=== PATIENT | female | born 1945 | race Caucasian/White ===

== ENCOUNTER 2017-11-13 18:26 | Inpatient (IN) ==
[2017-11-13] MEDS ORDERED: PANTOPRAZOLE 40 MG VIAL IV STA (20:46)
[2017-11-13] MEDS ORDERED: MEPERIDINE 25 MG/1 ML VIAL IV STA ×2 (20:46→22:35)
[2017-11-13] MEDS ORDERED: SODIUM CHLORIDE 0.9% 1,000 ML IV STA (20:46)
[2017-11-13] MEDS ORDERED: ONDANSETRON 4 MG/2 ML VIAL IV STA (20:46)
[2017-11-13 20:57] LABS: Basophils % 0.2 % (0.0-0.8); Eosinophils % 0.1 % (0.00-10.9); Hemoglobin 12.8 GM/DL (12.0-16.0); Immature Granulocytes % 0.5 %; Immature Granulocytes Absolute 0.05 #; Lymphocytes # 0.5 10*3/uL (1.4-4.0); Lymphocytes % 4.5 % (21.3-54.2); Mean Corpuscular Hemoglobin 28 PG (27-34); Mean Corpuscular Volume 87.3 FL (87-102); Mean Platelet Volume 10.2 FL (9.6-12.0); Monocytes # 0.6 10*3/uL (0.11-0.8); Neutrophils # 9.5 10*3/uL (1.4-7.4); Neutrophils % 88.7 % (38.7-73.9); Platelet Count 269 T/CUMM (130-400); Red Blood Count 4.58 MC/CUMM (3.8-5.5); White Blood Count 10.7 T/CUMM (4-12)
[2017-11-13 21:19] LABS: Lactic Acid 2.1 MMOL/L (0.4-2.0)
[2017-11-13 21:25] LABS: Alanine Aminotransferase 427 U/L (13-56); Albumin 4.1 G/DL (3.4-5.0); Alkaline Phosphatase 310 U/L (45-117); Amylase 40 U/L (25-115); Aspartate Amino Transferase 1085 U/L (0-37); Blood Urea Nitrogen 13 MG/DL (7-18); Glucose 173 MG/DL (74-106); Osmolality,Calculated 273.1 MOS/KG (273-304); Potassium 3.4 MMOL/L (3.5-5.1); Sodium 135 MMOL/L (136-145); Total Protein 8.5 G/DL (6.4-8.3); Troponin I Only < 0.015 NG/ML (0.00-0.045)
[2017-11-13 21:30] LABS: Band Neutrophils 3 % (0-10); Lymphocytes 4 % (20-55); Segmented Neutrophils 87 % (50-85); Total Cells Counted 100
[2017-11-13 21:31] LABS: Platelet Estimate Adequate
[2017-11-13] MEDS ORDERED: MAGNESIUM SULF RIDER 2 GM in PREMIX 1 EACH IV STA (22:22)
[2017-11-14] MEDS ORDERED: GLUCAGON 1 MG VIAL IM PRN (00:57)
[2017-11-14] MEDS ORDERED: hydrALAZINE 20 MG/1 ML VIAL IV PRN (00:57)
[2017-11-14] MEDS ORDERED: PROMETHAZINE 25 MG/1 ML VIAL IM PRN (00:57)
[2017-11-14] MEDS ORDERED: DEXTROSE 50% 25 GM/50 ML VIAL IV PRN (00:57)
[2017-11-14] MEDS: SODIUM CHLORIDE 0.9% 1,000 ML IV SCH ×3 (01:28→21:22)
[2017-11-14] MEDS: MEPERIDINE 50 MG/1 ML VIAL IV PRN ×4 (01:35→22:21)
[2017-11-14] MEDS: ONDANSETRON 4 MG/2 ML VIAL IV PRN ×2 (01:40→05:39)
[2017-11-14 01:48] LABS: Lactic Acid 4.1 MMOL/L (0.4-2.0)
[2017-11-14 05:10] LABS: Basophils % 0.2 % (0.0-0.8); Hematocrit 39.4 VOL% (35.7-47.0); Immature Granulocytes % 0.6 %; Immature Granulocytes Absolute 0.09 #; Lymphocytes # 0.2 10*3/uL (1.4-4.0); Lymphocytes % 1.3 % (21.3-54.2); Mean Corpuscular Hemoglobin 28 PG (27-34); Mean Corpuscular Volume 84.7 FL (87-102); Mean Platelet Volume 10.8 FL (9.6-12.0); Monocytes # 0.3 10*3/uL (0.11-0.8); Monocytes % 1.8 % (1.7-12.7); Neutrophils # 13.5 10*3/uL (1.4-7.4); Neutrophils % 96.1 % (38.7-73.9); Platelet Count 254 T/CUMM (130-400); Red Blood Count 4.65 MC/CUMM (3.8-5.5); Red Cell Distribution Width 15.1 % (9.3-17.3); White Blood Count 14.1 T/CUMM (4-12)
[2017-11-14 05:16] LABS: PT Patient Result 10.2 SECS; Partial Thromboplastin Time 25.1 SECS (0-40)
[2017-11-14 05:34] LABS: Band Neutrophils 11 % (0-10); Lymphocytes 1 % (20-55); Segmented Neutrophils 86 % (50-85); Total Cells Counted 100
[2017-11-14 05:35] LABS: Hypochromasia 1+
[2017-11-14 05:36] LABS: Microcytosis Slight
[2017-11-14 05:49] LABS: Albumin 3.6 G/DL (3.4-5.0); Bilirubin,Total 3.1 MG/DL (0.2-1.0); Osmolality,Calculated 272.2 MOS/KG (273-304); Potassium 2.9 MMOL/L (3.5-5.1); Risk Ratio 3.24; Thyroid Stimulating Hormone 0.409 uIU/ml (0.358-3.74); Total Protein 8.1 G/DL (6.4-8.3); VLDL CHOLESTEROL 15.2 MG/DL
[2017-11-14] MEDS: INSULIN REGULAR 100 UNIT/ML SUBCUT SCH ×3 (06:45→18:31)
[2017-11-14 07:37] LABS: Apearance,Urine CLEAR (Clear); Bilirubin,Urine Small mg/dL (Negative); Blood, Urine Negative (Negative); Glucose,Urine (UA) Negative (Negative); Ketones,Urine Negative (Negative); Nitrite,Urine Negative (Negative); Protein,Urine 30 MG/DL; RBC,Urine 4 /HPF (0-4); Squamous Epithelial Cell,Urine Occasional /HPF (0-10); Urine Color Amber (Yellow); Urine Specific Gravity 1.026 (1.001-1.035); WBC,Urine 1 /HPF (0-6)
[2017-11-14] MEDS: PANTOPRAZOLE 40 MG VIAL IV SCH (09:32)
[2017-11-14] MEDS ORDERED: GENTAMICIN INJ 80 MG in PREMIX 1 EACH IV ONE (10:30)
[2017-11-14] MEDS: cefTRIAXone 1,000 MG in SYRINGE 1 EACH IV SCH (11:09)
[2017-11-14] MEDS: POTASSIUM CHLORIDE RIDER 10 MEQ in PREMIX 1 EACH IV SCH ×4 (12:56→17:21)
[2017-11-15] MEDS: INSULIN REGULAR 100 UNIT/ML SUBCUT SCH ×4 (00:40→18:09)
[2017-11-15] MEDS: SODIUM CHLORIDE 0.9% 1,000 ML IV SCH ×3 (04:57→22:12)
[2017-11-15 06:16] LABS: Basophils % 0.2 % (0.0-0.8); Eosinophils # 0.1 10*3/uL (0.0-0.87); Eosinophils % 1.4 % (0.00-10.9); Hematocrit 32.3 VOL% (35.7-47.0); Immature Granulocytes % 0.5 %; Immature Granulocytes Absolute 0.05 #; Lymphocytes # 0.8 10*3/uL (1.4-4.0); Lymphocytes % 8.3 % (21.3-54.2); Mean Corpuscular HGB Conc 32.5 GM/DL (32-36); Mean Corpuscular Hemoglobin 28 PG (27-34); Mean Corpuscular Volume 84.6 FL (87-102); Mean Platelet Volume 11.1 FL (9.6-12.0); Monocytes # 0.7 10*3/uL (0.11-0.8); Monocytes % 7.9 % (1.7-12.7); Neutrophils # 7.5 10*3/uL (1.4-7.4); Neutrophils % 81.7 % (38.7-73.9); Platelet Count 206 T/CUMM (130-400); Red Blood Count 3.82 MC/CUMM (3.8-5.5); Red Cell Distribution Width 15.9 % (9.3-17.3)
[2017-11-15 06:17] LABS: White Blood Count 9.2 T/CUMM (4-12)
[2017-11-15 06:18] LABS: Hemoglobin 10.5 GM/DL (12.0-16.0)
[2017-11-15] MEDS ORDERED: INDOMETHACIN SUPP 50 MG SUPP RECTAL ONE (06:30)
[2017-11-15 06:37] LABS: Albumin 2.8 G/DL (3.4-5.0); Bilirubin,Total 3.7 MG/DL (0.2-1.0); Calcium 8.2 MG/DL (8.5-10.1); INR 1.1; Osmolality,Calculated 273.8 MOS/KG (273-304); PT Patient Result 11.9 SECS; Potassium 3.5 MMOL/L (3.5-5.1); Total Protein 6.6 G/DL (6.4-8.3)
[2017-11-15] MEDS ORDERED: PROPOFOL 200 MG/20 ML VIAL IV ONE (09:00)
[2017-11-15] MEDS ORDERED: ONDANSETRON 4 MG/2 ML VIAL ONE (09:00)
[2017-11-15] MEDS ORDERED: ROCURONIUM 100 MG/10 ML VIAL IV ONE (09:00)
[2017-11-15] MEDS ORDERED: SUCCINYLCHOLINE 200 MG/10 ML VIAL ONE (09:00)
[2017-11-15] MEDS ORDERED: LIDOCAINE 1% 5 ML VIAL ONE (09:00)
[2017-11-15] MEDS: PANTOPRAZOLE 40 MG VIAL IV SCH (09:03)
[2017-11-15] MEDS: cefTRIAXone 1,000 MG in SYRINGE 1 EACH IV SCH (10:01)
[2017-11-15] MEDS ORDERED: fentaNYL 100 MCG/2 ML VIAL ONE (11:53)
[2017-11-15] MEDS ORDERED: SEVOFLURANE 1 UNIT/15 MINUTE INH ONE ×2 (12:30→13:56)
[2017-11-15] MEDS: LACTATED RINGERS 1,000 ML IV SCH ×2 (13:58→13:59)
[2017-11-15] MEDS ORDERED: AMITRIPTYLINE 25 MG TABLET PO SCH (21:00)
[2017-11-15] MEDS ORDERED: tiZANidine 4 MG TABLET PO PRN (21:42)
[2017-11-15] MEDS ORDERED: rOPINIRole 0.25 MG TABLET PO SCH (21:45)
[2017-11-16] MEDS: INSULIN REGULAR 100 UNIT/ML SUBCUT SCH ×3 (00:22→12:22)
[2017-11-16] MEDS: SODIUM CHLORIDE 0.9% 1,000 ML IV SCH ×2 (02:40→12:23)
[2017-11-16 06:24] LABS: Basophils % 0.4 % (0.0-0.8); Eosinophils # 0.2 10*3/uL (0.0-0.87); Eosinophils % 3.4 % (0.00-10.9); Hematocrit 29.4 VOL% (35.7-47.0); Hemoglobin 9.3 GM/DL (12.0-16.0); Immature Granulocytes % 0.4 %; Immature Granulocytes Absolute 0.02 #; Lymphocytes # 0.5 10*3/uL (1.4-4.0); Lymphocytes % 10.5 % (21.3-54.2); Mean Corpuscular HGB Conc 31.6 GM/DL (32-36); Mean Corpuscular Hemoglobin 28 PG (27-34); Mean Corpuscular Volume 87.8 FL (87-102); Mean Platelet Volume 10.7 FL (9.6-12.0); Monocytes # 0.4 10*3/uL (0.11-0.8); Monocytes % 8.6 % (1.7-12.7); Neutrophils # 3.6 10*3/uL (1.4-7.4); Neutrophils % 76.7 % (38.7-73.9); Platelet Count 176 T/CUMM (130-400); Red Blood Count 3.35 MC/CUMM (3.8-5.5); Red Cell Distribution Width 15.8 % (9.3-17.3); White Blood Count 4.7 T/CUMM (4-12)
[2017-11-16 06:42] LABS: Albumin 2.5 G/DL (3.4-5.0); Bilirubin,Direct 0.57 MG/DL (0.0-0.20); Bilirubin,Indirect 0.8 MG/DL (0.0-1.0); Bilirubin,Total 1.4 MG/DL (0.2-1.0); Calcium 8.5 MG/DL (8.5-10.1); Osmolality,Calculated 279.4 MOS/KG (273-304); Potassium 3.6 MMOL/L (3.5-5.1); Total Protein 6.2 G/DL (6.4-8.3)
[2017-11-16] MEDS ORDERED: LEVOTHYROXINE 75 MCG TABLET PO SCH (07:00)
[2017-11-16] MEDS: LACTATED RINGERS 1,000 ML IV SCH ×3 (07:08→12:22)
[2017-11-16] MEDS: PANTOPRAZOLE 40 MG VIAL IV SCH (09:31)
[2017-11-16] MEDS: cefTRIAXone 1,000 MG in SYRINGE 1 EACH IV SCH (09:54)
[2017-11-16 12:15] VITALS: BP 151/73
== END 2017-11-16 14:47 | disposition home or self-care (01) | DRG 446 ==
LOC: N.ED 18:26 → N.EDINP 23:58 → N.3E 11-14 00:53
PROVIDERS: ADMIT Internal Medicine; ATTEND Internal Medicine
PROC: ERCPWST (ICD-10-PCS; 2017-11-15 09:05)

== ENCOUNTER 2018-09-08 09:48 | Inpatient (IN) ==
[2018-09-08] MEDS ORDERED: DEXTROSE 50% 25 GM/50 ML VIAL IV PRN (12:51)
[2018-09-08] MEDS ORDERED: GLUCAGON 1 MG VIAL IM PRN (12:51)
[2018-09-08] MEDS ORDERED: hydrALAZINE 20 MG/1 ML VIAL IV PRN (12:54)
[2018-09-08] MEDS ORDERED: ALBUTEROL/IPRATROPIUM 3 ML NEB RESP TX PRN (12:56)
[2018-09-08] MEDS ORDERED: ENOXAPARIN 40 MG/0.4 ML SYRINGE SUBCUT SCH (13:00)
[2018-09-08] MEDS ORDERED: PANTOPRAZOLE 40 MG TABLET PO SCH (13:00)
[2018-09-08 13:13] LABS: Basophils % 0.4 % (0.0-0.8); Eosinophils # 0.1 10*3/uL (0.0-0.87); Eosinophils % 0.7 % (0.00-10.9); Hematocrit 30.9 VOL% (35.7-47.0); Hemoglobin 9.5 GM/DL (12.0-16.0); Immature Granulocytes % 0.4 %; Immature Granulocytes Absolute 0.03 #; Lymphocytes # 1.7 10*3/uL (1.4-4.0); Lymphocytes % 24.3 % (21.3-54.2); Mean Corpuscular HGB Conc 30.7 GM/DL (32-36); Mean Corpuscular Volume 86.6 FL (87-102); Mean Platelet Volume 10.1 FL (9.6-12.0); Monocytes % 7.4 % (1.7-12.7); Neutrophils % 66.8 % (38.7-73.9); Platelet Count 236 T/CUMM (130-400); Red Blood Count 3.57 MC/CUMM (3.8-5.5); Red Cell Distribution Width 14.9 % (9.3-17.3); White Blood Count 7.1 T/CUMM (4-12)
[2018-09-08] MEDS: LACTATED RINGERS 1,000 ML IV SCH ×2 (13:55→22:11)
[2018-09-08] MEDS: PANTOPRAZOLE 40 MG TABLET PO SCH ×2 (13:56→20:22)
[2018-09-08 14:11] LABS: Risk Ratio 3.48; Total Protein 6.1 G/DL (6.4-8.3); VLDL CHOLESTEROL 35.4 MG/DL
[2018-09-08 14:23] LABS: Sedimentation Rate-Westergren 47 MM/HR (0-30)
[2018-09-08 14:34] LABS: Eosinophils 2 % (0-10); Lymphocytes 22 % (20-55); Platelet Estimate Adequate; Segmented Neutrophils 68 % (50-85); Total Cells Counted 100
[2018-09-08] MEDS ORDERED: ONDANSETRON 4 MG/2 ML VIAL IV PRN (15:58)
[2018-09-08] MEDS: INSULIN REGULAR 100 UNIT/ML SUBCUT SCH ×2 (15:58→20:23)
[2018-09-08] MEDS: AMITRIPTYLINE 25 MG TABLET PO SCH (20:22)
[2018-09-09 05:31] LABS: Basophils % 0.5 % (0.0-0.8); Eosinophils # 0.1 10*3/uL (0.0-0.87); Eosinophils % 2.2 % (0.00-10.9); Hematocrit 32.1 VOL% (35.7-47.0); Hemoglobin 9.7 GM/DL (12.0-16.0); Immature Granulocytes % 0.4 %; Immature Granulocytes Absolute 0.02 #; Lymphocytes # 1.5 10*3/uL (1.4-4.0); Lymphocytes % 27.7 % (21.3-54.2); Mean Corpuscular HGB Conc 30.2 GM/DL (32-36); Mean Corpuscular Volume 88.4 FL (87-102); Mean Platelet Volume 10.7 FL (9.6-12.0); Monocytes % 7.9 % (1.7-12.7); Neutrophils % 61.3 % (38.7-73.9); Platelet Count 235 T/CUMM (130-400); Red Blood Count 3.63 MC/CUMM (3.8-5.5); Red Cell Distribution Width 14.8 % (9.3-17.3); White Blood Count 5.6 T/CUMM (4-12)
[2018-09-09 06:07] LABS: Albumin 2.9 G/DL (3.4-5.0); Bilirubin,Total 0.7 MG/DL (0.2-1.0); Calcium 8.6 MG/DL (8.5-10.1); Osmolality,Calculated 282.1 MOS/KG (273-304); Total Protein 5.7 G/DL (6.4-8.3)
[2018-09-09] MEDS: LEVOTHYROXINE 75 MCG TABLET PO SCH (06:07)
[2018-09-09] MEDS: LACTATED RINGERS 1,000 ML IV SCH ×2 (06:07→19:39)
[2018-09-09 06:09] LABS: % Iron Saturation 18.2 % (18-50); Ferritin 21.9 ng/ml (8-252)
[2018-09-09 06:21] LABS: Immunoglobulin A (Chem) 244 MG/DL (70-400); Immunoglobulin G (Chem) 812 MG/DL (700-1600); Immunoglobulin M (Chem) 62 MG/DL (40-230); Total Protein (Chem) 6.1 G/DL (6.4-8.3)
[2018-09-09] MEDS: ACETAMINOPHEN 325 MG TABLET PO PRN ×2 (08:00→20:11)
[2018-09-09] MEDS: PANTOPRAZOLE 40 MG TABLET PO SCH ×2 (08:01→20:12)
[2018-09-09] MEDS: DULoxetine 30 MG CAPSULE PO SCH (08:01)
[2018-09-09] MEDS: rOPINIRole 0.25 MG TABLET PO SCH (08:02)
[2018-09-09] MEDS: INSULIN REGULAR 100 UNIT/ML SUBCUT SCH ×4 (08:02→20:45)
[2018-09-09] MEDS ORDERED: VALSARTAN 80 MG TABLET PO SCH (09:00)
[2018-09-09 11:13] LABS: Albumin (SPE) 3.8 G/DL (3.2-5.3); Albumin (SPE) Rel % 62.1 %; Alpha 1 (SPE) 0.1 G/DL (0.1-0.4); Alpha 1 (SPE) Rel % 2.3 %; Alpha 2 (SPE) 0.8 G/DL (0.4-1.0); Alpha 2 (SPE) Rel % 12.6 %; Beta (SPE) 0.6 G/DL (0.5-1.1); Beta (SPE) Rel % 10.4 %; Gamma (SPE) 0.8 G/DL (0.7-1.7); Gamma (SPE) Rel % 12.6 %
[2018-09-09 18:25] LABS: Total Protein 24 Hr Ur Result 129 MG/24HR (0-149.1); Total Volume,Urine 1850 ML (400-2000)
[2018-09-09] MEDS: AMITRIPTYLINE 25 MG TABLET PO SCH (20:12)
[2018-09-09] MEDS: tiZANidine 4 MG TABLET PO PRN (20:13)
[2018-09-09] MEDS: HYDROmorphone 2 MG/1 ML VIAL IV PRN (23:12)
[2018-09-10] MEDS: LEVOTHYROXINE 75 MCG TABLET PO SCH (06:00)
[2018-09-10 06:20] LABS: 24 Hr Protein (Bench) 129 MG/24HR (0-149.1)
[2018-09-10] MEDS: DULoxetine 30 MG CAPSULE PO SCH (08:17)
[2018-09-10] MEDS: rOPINIRole 0.25 MG TABLET PO SCH (08:17)
[2018-09-10] MEDS: amLODIPine 5 MG TABLET PO SCH (08:17)
[2018-09-10] MEDS: PANTOPRAZOLE 40 MG TABLET PO SCH ×2 (08:17→20:17)
[2018-09-10] MEDS: INSULIN REGULAR 100 UNIT/ML SUBCUT SCH ×4 (08:17→22:43)
[2018-09-10 12:38] LABS: Immuno Free Light Chain Kappa 2.34 MG/DL (0.33-1.94); Immuno Free Light Chain Lambda 5.21 MG/DL (0.57-2.63); Immuno Free Light Chain Ratio 0.45 MG/DL (0.26-1.65)
[2018-09-10] MEDS ORDERED: LORazepam 2 MG/1 ML VIAL IV ONE (13:47)
[2018-09-10] MEDS: MAGNESIUM CHLORIDE 64 MG TABLET PO SCH (17:04)
[2018-09-10] MEDS: tiZANidine 4 MG TABLET PO PRN (20:15)
[2018-09-10] MEDS: HYDROmorphone 2 MG/1 ML VIAL IV PRN (20:16)
[2018-09-10] MEDS: AMITRIPTYLINE 25 MG TABLET PO SCH (20:17)
[2018-09-11] MEDS: LEVOTHYROXINE 75 MCG TABLET PO SCH (06:07)
[2018-09-11] MEDS: INSULIN REGULAR 100 UNIT/ML SUBCUT SCH ×2 (07:54→11:59)
[2018-09-11] MEDS: amLODIPine 5 MG TABLET PO SCH (08:59)
[2018-09-11] MEDS: rOPINIRole 0.25 MG TABLET PO SCH (08:59)
[2018-09-11] MEDS: MAGNESIUM CHLORIDE 64 MG TABLET PO SCH (08:59)
[2018-09-11] MEDS: DULoxetine 30 MG CAPSULE PO SCH (09:00)
[2018-09-11] MEDS: PANTOPRAZOLE 40 MG TABLET PO SCH (09:00)
[2018-09-11] MEDS: ACETAMINOPHEN 325 MG TABLET PO PRN (11:32)
[2018-09-11 12:12] VITALS: BP 144/81
== END 2018-09-11 13:38 | disposition home or self-care (01) | DRG 440 ==
LOC: N.2E
PROVIDERS: ADMIT Internal Medicine; ATTEND Hospitalist

== ENCOUNTER 2020-07-17 23:51 | Observation (INO) ==
[2020-07-18] MEDS ORDERED: ONDANSETRON 4 MG/2 ML VIAL IV PRN (04:40)
[2020-07-18] MEDS ORDERED: NICOTINE 21 MG/24 HR PATCH TRANSDERM PRN (04:40)
[2020-07-18] MEDS ORDERED: GLUCAGON 1 MG VIAL IM PRN (04:40)
[2020-07-18] MEDS ORDERED: DEXTROSE 50% 25 GM/50 ML VIAL IV PRN (04:40)
[2020-07-18 05:22] LABS: Basophils % 0.3 % (0.0-0.8); Eosinophils # 0.2 10*3/uL (0.0-0.87); Eosinophils % 3.3 % (0.00-10.9); Hemoglobin 10.9 GM/DL (12.0-16.0); Immature Granulocytes % 0.5 %; Immature Granulocytes Absolute 0.03 #; Lymphocytes # 1.2 10*3/uL (1.4-4.0); Lymphocytes % 18.8 % (21.3-54.2); Mean Corpuscular HGB Conc 32.1 GM/DL (32-36); Mean Platelet Volume 10.5 FL (9.6-12.0); Neutrophils % 66.1 % (38.7-73.9); Platelet Count 250 T/CUMM (130-400); Red Cell Distribution Width 15.2 % (9.3-17.3); White Blood Count 6.3 T/CUMM (4-12)
[2020-07-18 05:56] LABS: Albumin 2.8 G/DL (3.4-5.0); Bilirubin,Total 0.5 MG/DL (0.2-1.0); Calcium 9.3 MG/DL (8.5-10.1); Osmolality,Calculated 278.4 MOS/KG (273-304); Potassium 3.8 MMOL/L (3.5-5.1); Total Protein 6.8 G/DL (6.4-8.2)
[2020-07-18] MEDS: cefTRIAXone 1,000 MG in SODIUM CHLORIDE 0.9% 100 ML IV SCH (05:59)
[2020-07-18] MEDS: PANTOPRAZOLE 40 MG VIAL IV SCH ×3 (05:59→21:20)
[2020-07-18] MEDS: SODIUM CHLORIDE 0.9% 1,000 ML IV SCH ×2 (06:02→23:01)
[2020-07-18] MEDS: metroNIDAZOLE INJ 500 MG in PREMIX 1 EACH IV SCH ×2 (06:39→17:58)
[2020-07-18] MEDS: ACETAMINOPHEN 325 MG TABLET PO PRN (08:11)
[2020-07-18] MEDS ORDERED: amLODIPine 5 MG TABLET PO SCH (09:00)
[2020-07-18] MEDS ORDERED: hydroCHLOROthiazide 12.5 MG CAPSULE PO SCH (09:00)
[2020-07-18] MEDS ORDERED: DULoxetine 30 MG CAPSULE PO SCH (09:00)
[2020-07-18] MEDS ORDERED: tiZANidine 4 MG TABLET PO PRN (12:56)
[2020-07-18] MEDS: PANTOPRAZOLE 40 MG TABLET PO SCH ×2 (14:30→21:18)
[2020-07-18] MEDS: DULoxetine 30 MG CAPSULE PO SCH (14:53)
[2020-07-18] MEDS ORDERED: metFORMIN 500 MG TABLET PO SCH (17:00)
[2020-07-18] MEDS ORDERED: AMITRIPTYLINE 25 MG TABLET PO SCH ×2 (21:00)
[2020-07-19] MEDS: PANTOPRAZOLE 40 MG TABLET PO SCH ×2 (01:17→08:34)
[2020-07-19] MEDS: ACETAMINOPHEN 325 MG TABLET PO PRN (04:32)
[2020-07-19] MEDS: cefTRIAXone 1,000 MG in SODIUM CHLORIDE 0.9% 100 ML IV SCH (04:52)
[2020-07-19 05:50] LABS: Basophils % 0.6 % (0.0-0.8); Eosinophils # 0.2 10*3/uL (0.0-0.87); Eosinophils % 4.8 % (0.00-10.9); Hematocrit 35.5 VOL% (35.7-47.0); Hemoglobin 11.2 GM/DL (12.0-16.0); Immature Granulocytes % 0.2 %; Immature Granulocytes Absolute 0.01 #; Lymphocytes # 0.9 10*3/uL (1.4-4.0); Lymphocytes % 18.8 % (21.3-54.2); Mean Corpuscular HGB Conc 31.5 GM/DL (32-36); Mean Corpuscular Volume 86.6 FL (87-102); Mean Platelet Volume 10.4 FL (9.6-12.0); Monocytes % 11.9 % (1.7-12.7); Neutrophils % 63.7 % (38.7-73.9); Platelet Count 276 T/CUMM (130-400); Red Cell Distribution Width 15.6 % (9.3-17.3)
[2020-07-19] MEDS ORDERED: LEVOTHYROXINE 75 MCG TABLET PO SCH (06:00)
[2020-07-19 06:05] LABS: Calcium 8.8 MG/DL (8.5-10.1); Osmolality,Calculated 271.7 MOS/KG (273-304); Potassium 3.1 MMOL/L (3.5-5.1)
[2020-07-19] MEDS: metroNIDAZOLE INJ 500 MG in PREMIX 1 EACH IV SCH (06:10)
[2020-07-19] MEDS ORDERED: LEVOTHYROXINE 25 MCG TABLET PO SCH (06:30)
[2020-07-19] MEDS: DULoxetine 30 MG CAPSULE PO SCH (08:34)
[2020-07-19] MEDS: POTASSIUM CHLORIDE 20 MEQ TABLET PO PRN ×2 (08:34→11:13)
[2020-07-19] MEDS ORDERED: hydroCHLOROthiazide 12.5 MG CAPSULE PO SCH (09:00)
[2020-07-19] MEDS ORDERED: MAGNESIUM CHLORIDE 64 MG TABLET PO SCH (09:00)
[2020-07-19] MEDS ORDERED: amLODIPine 2.5 MG TABLET PO SCH (09:00)
[2020-07-19] MEDS ORDERED: DEXTROSE 50% 25 GM/50 ML VIAL IV PRN (10:45)
[2020-07-19] MEDS ORDERED: GLUCAGON 1 MG VIAL IM PRN (10:45)
[2020-07-19 11:11] VITALS: BP 144/77
[2020-07-19] MEDS: PANTOPRAZOLE 40 MG VIAL IV SCH (11:32)
[2020-07-19] MEDS: SODIUM CHLORIDE 0.9% 1,000 ML IV SCH (11:32)
== END 2020-07-19 15:42 | disposition home or self-care (01) ==
LOC: N.3E 07-18 02:47 → SUATTDRO 07-18 02:47 → INTOOBSV 07-18 02:47
PROVIDERS: ADMIT Internal Medicine; ATTEND Internal Medicine